=== PATIENT | female | born 1950 | race Caucasian/White ===

== ENCOUNTER 2017-12-22 11:43 | Emergency (ER) | payer MEDICARE ==
[~2017-12-22] VITALS: Ht 152.4 cm; Wt 72.6 kg
== END 2017-12-22 12:38 | disposition home or self-care (01) ==
LOC: ED 11:43
DX: S81.811A Laceration without foreign body, right lower leg, initial encounter (principal); W45.8XXA Other foreign body or object entering through skin, initial encounter; Y93.89 Activity, other specified; Y92.89 Other specified places as the place of occurrence of the external cause; Y99.9 Unspecified external cause status